=== PATIENT | male | born 1980 | race Caucasian/White ===

== ENCOUNTER 2017-10-07 18:00 | Inpatient (IN) | payer MEDICAID ==
[~2017-10-07] VITALS: Ht 160 cm; Wt 123.5 kg
[2017-10-07 18:11] VITALS: Ht 160 cm; Wt 123.5 kg
[2017-10-07 19:56] LABS: PLATELET COUNT 166 x10^3mcL (130-400); RED CELL DISTRIBUTION WIDTH 13.3 % (11.5-14.5)
[2017-10-07 20:04] LABS: CALCIUM 8.2 mg/dL (8.5-10.1); CARBON DIOXIDE 24.8 mmol/L (21-32); CHLORIDE SERUM 97 mmol/L (98-107); CREATININE SERUM 1.2 mg/dL (0.7-1.3); GFR1 > 60 mL/min; GLUCOSE SERUM 130 mg/dL (74-106); POTASSIUM SERUM 3.4 mmol/L (3.5-5.1); SODIUM SERUM 132 mmol/L (136-145)
[2017-10-07 20:08] LABS: ALKALINE PHOSPHATASE 92 U/L (46-116); ALT/SGPT 26 U/L (16-63); AST/SGOT 15 U/L (15-37); TOTAL PROTEIN, SERUM 7.4 g/dL (6.4-8.2)
[2017-10-07 20:09] LABS: ALBUMIN 2.9 g/dL (3.4-5.0)
[2017-10-07 20:14] LABS: BAND NEUTROPHIL 3 % (0-10); BASOPHIL 0 % (0-2); MONOCYTE 7 % (0-7); SEGMENTED NEUTROPHILS 80 % (37-75)
[2017-10-07 20:15] LABS: rbc morphology (normal/abnorm) ABNORMAL (NORMAL)
[2017-10-07] MEDS ORDERED: AMOXICILLI125 MG/5 M PO (21:10)
[2017-10-07 21:58] VITALS: BP 114/60
[2017-10-07 22:01] LABS: MAGNESIUM 1.7 mg/dL (1.8-2.4); PHOSPHOROUS 1.8 mg/dL (2.5-4.9)
[2017-10-07 22:02] LABS: CHOLESTEROL/HDL RATIO 4.8
[2017-10-07 22:09] LABS: T3 TOTAL 1.19 ng/mL
[2017-10-07 22:23] LABS: FREE T4 1.11 ng/dL (0.76-1.46); T4(THYROXINE) 6.3 ug/dL (4.7-13.3)
[2017-10-08 05:27] VITALS: BP 100/62
[2017-10-08 06:36] LABS: PLATELET COUNT 169 x10^3mcL (130-400); RED CELL DISTRIBUTION WIDTH 13.5 % (11.5-14.5)
[2017-10-08 07:04] LABS: CALCIUM 8.2 mg/dL (8.5-10.1); CARBON DIOXIDE 24.8 mmol/L (21-32); CHLORIDE SERUM 102 mmol/L (98-107); CREATININE SERUM 0.9 mg/dL (0.7-1.3); GFR1 > 60 mL/min; GLUCOSE SERUM 109 mg/dL (74-106); POTASSIUM SERUM 3.5 mmol/L (3.5-5.1); SODIUM SERUM 138 mmol/L (136-145)
[2017-10-08 09:53] VITALS: BP 123/60
[2017-10-08 10:12] LABS: BAND NEUTROPHIL 5 % (0-10); BASOPHIL 0 % (0-2); MONOCYTE 7 % (0-7); SEGMENTED NEUTROPHILS 77 % (37-75)
[2017-10-08 13:27] VITALS: BP 102/56
[2017-10-08 17:18] VITALS: BP 106/63
[2017-10-08 18:35] LABS: microscopic required? YES; urine erythrocyte 1+ (NEGATIVE)
[2017-10-08 18:56] LABS: AMPHETAMINE QUAL UR NONE DETECTED (See below)
[2017-10-08 21:00] VITALS: BP 100/64
[2017-10-09 04:48] VITALS: BP 109/59
[2017-10-09 06:58] LABS: BASOPHIL % 0.3 % (0-2); PLATELET COUNT 189 x10^3mcL (130-400); RED CELL DISTRIBUTION WIDTH 13.7 % (11.5-14.5)
[2017-10-09 09:21] LABS: AST/SGOT 2 U/L (15-37); BILIRUBIN TOTAL 0.5 mg/dL (0.20-1.00)
[2017-10-09 09:24] VITALS: BP 123/66
[2017-10-09 09:39] LABS: ALKALINE PHOSPHATASE 75 U/L (46-116); ALT/SGPT 27 U/L (16-63); CALCIUM 7.7 mg/dL (8.5-10.1); CARBON DIOXIDE 26.6 mmol/L (21-32); CHLORIDE SERUM 100 mmol/L (98-107); CREATININE SERUM 0.8 mg/dL (0.7-1.3); GFR1 > 60 mL/min; GLUCOSE SERUM 104 mg/dL (74-106); PHOSPHOROUS 3.8 mg/dL (2.5-4.9); POTASSIUM SERUM 3.5 mmol/L (3.5-5.1); SODIUM SERUM 135 mmol/L (136-145)
[2017-10-09 09:43] LABS: ALBUMIN 2.4 g/dL (3.4-5.0); TOTAL PROTEIN, SERUM 5.8 g/dL (6.4-8.2)
[2017-10-09 14:17] VITALS: BP 133/73
[2017-10-09 17:07] VITALS: BP 130/66
[2017-10-09 20:48] VITALS: BP 113/57
[2017-10-10 05:12] VITALS: BP 99/68
[2017-10-10 07:58] LABS: BASOPHIL % 0.3 % (0-2); PLATELET COUNT 221 x10^3mcL (130-400); RED CELL DISTRIBUTION WIDTH 13.9 % (11.5-14.5)
[2017-10-10 08:29] VITALS: BP 117/73
[2017-10-10 08:38] LABS: ALKALINE PHOSPHATASE 66 U/L (46-116); ALT/SGPT 21 U/L (16-63); AST/SGOT 17 U/L (15-37); BILIRUBIN TOTAL 0.48 mg/dL (0.20-1.00); CALCIUM 8.5 mg/dL (8.5-10.1); CARBON DIOXIDE 27.8 mmol/L (21-32); CHLORIDE SERUM 104 mmol/L (98-107); CREATININE SERUM 0.8 mg/dL (0.7-1.3); GFR1 > 60 mL/min; GLUCOSE SERUM 94 mg/dL (74-106); MAGNESIUM 2.1 mg/dL (1.8-2.4); POTASSIUM SERUM 3.4 mmol/L (3.5-5.1); SODIUM SERUM 140 mmol/L (136-145); TOTAL PROTEIN, SERUM 6.2 g/dL (6.4-8.2)
[2017-10-10 08:40] LABS: ALBUMIN 2.2 g/dL (3.4-5.0)
[2017-10-10 12:44] VITALS: BP 130/80
[2017-10-10 17:15] VITALS: BP 123/71
[2017-10-10 21:00] VITALS: BP 135/74
[2017-10-11 05:35] VITALS: BP 118/76
[2017-10-11 06:24] LABS: BASOPHIL % 0.2 % (0-2); PLATELET COUNT 283 x10^3mcL (130-400); RED CELL DISTRIBUTION WIDTH 13.5 % (11.5-14.5)
[2017-10-11 06:51] LABS: CALCIUM 8.1 mg/dL (8.5-10.1); CARBON DIOXIDE 26.3 mmol/L (21-32); CHLORIDE SERUM 101 mmol/L (98-107); CREATININE SERUM 0.8 mg/dL (0.7-1.3); GFR1 > 60 mL/min; GLUCOSE SERUM 96 mg/dL (74-106); POTASSIUM SERUM 4.1 mmol/L (3.5-5.1); SODIUM SERUM 137 mmol/L (136-145)
[2017-10-11 09:22] VITALS: BP 132/78
[2017-10-11 13:37] VITALS: BP 136/71
[2017-10-11 18:00] VITALS: BP 127/77
[2017-10-11 21:07] VITALS: BP 128/69
[2017-10-12 05:09] VITALS: BP 115/64
[2017-10-12 06:44] LABS: BASOPHIL % 0.3 % (0-2); PLATELET COUNT 356 x10^3mcL (130-400); RED CELL DISTRIBUTION WIDTH 13.8 % (11.5-14.5)
[2017-10-12 06:50] LABS: ALKALINE PHOSPHATASE 69 U/L (46-116); ALT/SGPT 56 U/L (16-63); AST/SGOT 38 U/L (15-37); CALCIUM 8.9 mg/dL (8.5-10.1); CARBON DIOXIDE 24.9 mmol/L (21-32); CHLORIDE SERUM 103 mmol/L (98-107); CREATININE SERUM 0.9 mg/dL (0.7-1.3); GFR1 > 60 mL/min; GLUCOSE SERUM 99 mg/dL (74-106); POTASSIUM SERUM 4.1 mmol/L (3.5-5.1); SODIUM SERUM 137 mmol/L (136-145); TOTAL PROTEIN, SERUM 6.7 g/dL (6.4-8.2)
[2017-10-12 06:52] LABS: ALBUMIN 2.3 g/dL (3.4-5.0)
[2017-10-12 07:59] VITALS: BP 123/71
[2017-10-12] MEDS ORDERED: KEFLEX500 M1 PO (09:02)
[2017-10-12] MEDS ORDERED: BACTRIM DS1 TAB PO (09:02)
[2017-10-12] MEDS ORDERED: FLUCONAZOLE100 MG PO (09:02)
[2017-10-12] MEDS ORDERED: LAC PO (09:03)
[2017-10-12 12:43] VITALS: BP 137/74
[2017-10-12 13:10] VITALS: BP 137/74
== END 2017-10-12 14:15 | disposition home or self-care (01) | DRG 720 ==
LOC: ED 18:00 → DU 21:07
PROVIDERS: Emergency Medicine; Family Medicine
PROC: 0H9MXZX Drainage of Right Foot Skin, External Approach, Diagnostic (ICD-10-PCS; principal; 2017-10-08)
DX: A41.9 Sepsis, unspecified organism (principal); E44.0 Moderate protein-calorie malnutrition; E66.01 Morbid (severe) obesity due to excess calories; E83.39 Other disorders of phosphorus metabolism; E87.1 Hypo-osmolality and hyponatremia; B35.3 Tinea pedis; E83.42 Hypomagnesemia; Z68.42 Body mass index [BMI] 45.0-49.9, adult; L03.115 Cellulitis of right lower limb; R26.0 Ataxic gait; R23.8 Other skin changes; E87.6 Hypokalemia; E03.9 Hypothyroidism, unspecified; I73.9 Peripheral vascular disease, unspecified
CPT/HCPCS: 83880; 84439; J1644; J1885; J2543; J3010; J3370; J3475; J3490; J7030; J7040; Q0092; Q9967